=== PATIENT | female | born 1955 | race Caucasian/White ===

== ENCOUNTER 2019-01-06 19:50 | Emergency (ER) | payer OTHER ==
[~2019-01-06] VITALS: Ht 152.4 cm; Wt 69.9 kg
[2019-01-06] MEDS ORDERED: NEURONTIN300 MG (20:08)
[2019-01-06] MEDS ORDERED: COZAAR25 MG (20:08)
== END 2019-01-07 00:32 | disposition home or self-care (01) ==
LOC: ER 19:50
DX: S82.091A Other fracture of right patella, initial encounter for closed fracture (principal); Y93.E1 Activity, personal bathing and showering; Y92.091 Bathroom in other non-institutional residence as the place of occurrence of the external cause; Y99.8 Other external cause status

== ENCOUNTER 2019-05-10 09:45 | Emergency (ER) | payer OTHER ==
[~2019-05-10] VITALS: Ht 152.4 cm; Wt 68.0 kg
[~2019-05-10 09:45] MED LIST: COZAAR25 MG; NEURONTIN300 MG
[2019-05-10] MEDS ORDERED: LOSARTAN POTASS50 MG PO (10:00)
[2019-05-10] MEDS ORDERED: NEURONTIN300 MG PO (10:01)
== END 2019-05-10 11:20 | disposition home or self-care (01) ==
LOC: ER 09:45
DX: M25.562 Pain in left knee (principal)

== ENCOUNTER 2024-05-16 06:38 | Day surgery (SDC) | payer OTHER ==
[~2024-05-16 06:38] MED LIST changes: +ATORVASTATIN CA10 MG; +BACTRIM DS TAB1 EACH PO; +GRALISE600 MG PO; +INTEGRA PLUS C1 EACH PO; +LIPIT PO; +LOSARTAN POTASS50 MG PO; +NEURONTIN300 MG PO; +OXYC1TAB9 PO; +XARELTO10 MG PO
[2024-05-16] MEDS ORDERED: fentaNYL CITRATE 50 MCG/ML AMPUL IV PUSH ONE (11:15)
[2024-05-16] MEDS ORDERED: DIPHENHYDRAMINE HCL 50 MG/ML VIAL 1ML IV ONE (11:15)
[2024-05-16] MEDS ORDERED: MIDAZOLAM HCL 2 MG/2 ML VIAL IV ONE (11:15)
== END 2024-05-16 12:10 | disposition home or self-care (01) ==
LOC: AMB-ENDOS 06:38
PROVIDERS: ATTEND Internal Medicine
DX: D12.3 Benign neoplasm of transverse colon (principal); D12.4 Benign neoplasm of descending colon; K56.690 Other partial intestinal obstruction; K91.89 Other postprocedural complications and disorders of digestive system; K57.30 Diverticulosis of large intestine without perforation or abscess without bleeding; Z88.5 Allergy status to narcotic agent

== ENCOUNTER 2025-05-11 21:32 | Emergency (ER) | payer OTHER ==
[~2025-05-11] VITALS: Ht 152.4 cm; Wt 65.8 kg
[2025-05-11] MEDS ORDERED: 0.9 % SODIUM CHLORIDE 1,000 ML IV SCH (23:00)
[2025-05-11] MEDS ORDERED: PANTOPRAZOLE SODIUM 40 MG/VIAL VIAL IV ONE (23:00)
[2025-05-11] MEDS ORDERED: 0.9 % SODIUM CHLORIDE 1,000 ML IV ONE (23:00)
[2025-05-11] MEDS ORDERED: ONDANSETRON HCL 2 MG/ML VIAL IV ONE (23:00)
[2025-05-11] MEDS ORDERED: OCTREOTIDE ACETATE 0.05MG/ML (50MCG/ML) AMPUL IV ONE (23:00)
[2025-05-11 23:52] LABS: BASO % 0.4 % (0.1-1.2); EOS # 0.03 (0.04-0.54); EOS % 0.4 % (0.7-7.0); LYMPH # 1.29 (1.18-3.74); LYMPH % 15.8 % (19.3-53.1); MEAN PLATELET VOLUME 9.20 fl (9.4-12.4); MONO # 0.44 (0.24-0.82); MONO % 5.4 % (4.7-12.5); NEUT # 6.37 (1.56-6.13); NEUT % 77.6 % (34.0-71.1); RED CELL DISTRIBUTION WIDTH 12.4 % (11.6-14.4)
[2025-05-12 00:30] LABS: INR 0.99
[2025-05-12 00:37] LABS: ALT/SGPT 16.0 U/L (12-78); AST/SGOT 20.0 U/L (15-37); BILIRUBIN TOTAL 0.38 mg/dL (0.3-1.2); BUN CREA RATIO 46.0 (7.0-25.0); CREATININE SERUM 0.48 mg/dL (0.55-1.02); GFR 127.13; GLOBULINA 3.5 G/DL (2.4-3.5); GLUCOSE FASTING 120.0 mg/dL (65-100); OSMOLALITY SERUM 295.0 MOSM/KG (275-295)
[2025-05-12] MEDS ORDERED: HYOSCYAMINE SULFATE 0.125 MG TAB.SUBL PO ONE (01:00)
[2025-05-12 01:12] LABS: COVID-19 AG NEGATIVE (NEGATIVE)
[2025-05-12] MEDS ORDERED: PROMETHAZINE HCL 25 MG/ML AMPUL IM ONE (01:30)
[2025-05-12 02:28] LABS: URINE APPEARANCE Clear; URINE BILIRRUBIN Negative (NEGATIVE); URINE BLOOD Negative; URINE COLOR Yellow; URINE GLUCOSE Negative (NEGATIVE); URINE KETONE 15 (NEGATIVE); URINE LEUKOCYTE Negative; URINE NITRATE Negative; URINE PROTEIN Negative (NEGATIVE); URINE UROBILINOGEN 0.2 E.U./dl
[2025-05-12 02:31] LABS: URINE BACTERIA 37.1 uL (0.0-1933); URINE EPITHELIAL CELLS 5.5 uL (0.0-38.8); URINE WBC 3.2 uL (0.0-23.2)
[2025-05-12 02:41] LABS: URINE CAST 0.00 uL (0.0-1.40); URINE RBC 1.4 uL (0.0-20.8)
[2025-05-12] MEDS ORDERED: TRAMADOL HCL 50 MG TABLET PO ONE (03:00)
[2025-05-12] MEDS ORDERED: PANTOPRAZOLE SODIUM 80 MG in 0.9 % SODIUM CHLORIDE 100 ML IV SCH (03:45)
[2025-05-12] MEDS ORDERED: CIPRO500 MG PO (10:36)
[2025-05-12] MEDS ORDERED: PROTONIX40 MG PO (10:36)
[2025-05-12] MEDS ORDERED: METRONIDAZOLE500 MG PO (10:36)
== END 2025-05-12 13:32 | disposition home or self-care (01) ==
LOC: ER 21:33
PROVIDERS: General Practice
DX: K52.89 Other specified noninfective gastroenteritis and colitis (principal); K92.0 Hematemesis; Z88.8 Allergy status to other drugs, medicaments and biological substances; M19.90 Unspecified osteoarthritis, unspecified site; E78.49 Other hyperlipidemia; I10 Essential (primary) hypertension; Z20.822 Contact with and (suspected) exposure to COVID-19
CPT/HCPCS: 36415; 74177; 82803; 96365; 96366; 96372; 99284; J2250; J2405; J3490; J7030; Q9965